=== PATIENT | male | born 1980 | race Caucasian/White ===

== ENCOUNTER → 2020-12-28 13:08 | Outpatient (BNVA) | payer OTHER, SELFPAY | PROVIDERS: Visit Provider Nurse Practitioner Family | DX: Z20.822 Contact with and (suspected) exposure to COVID-19 (principal); Z20.828 Contact with and (suspected) exposure to other viral communicable diseases | CPT/HCPCS: 87635 ==

== ENCOUNTER 2023-02-11 18:07 | Emergency (ER) | payer SELFPAY ==
--- NOTE | 2023-02-11 18:08 | XRR_ITS ---
PROCEDURE INFORMATION: Exam: XR Right Ankle Exam date and time: 02/11/2023 6:15 PM Age: 42 years old Clinical indication: Injury or trauma; Other: Unknown TECHNIQUE: Imaging protocol: Radiologic exam of the right ankle. Views: 3 or more views. COMPARISON: CR (LOW EXM, ) 02/11/2023 6:15 PM FINDINGS: Bones/joints: Likely chronic appearing calcifications about the distal fibular metaphysis. Soft tissues: Normal. XR/XR ankle RT min 3V* [id number] IMPRESSION: Likely chronic appearing calcifications about the distal fibular metaphysis. If clinically indicated a CT scan could further evaluate.
--- NOTE | 2023-02-11 18:08 | XRR_ITS ---
PROCEDURE INFORMATION: Exam: XR Right Foot Exam date and time: 02/11/2023 6:15 PM Age: 42 years old Clinical indication: Injury or trauma; Other: Unknown TECHNIQUE: Imaging protocol: Radiologic exam of the right foot. Views: 3 or more views. COMPARISON: CR (LOW EXM, ) 02/11/2023 6:15 PM FINDINGS: Bones/joints: Os navicularis, normal variant. Soft tissues: Normal. XR/XR foot RT min 3V* [id number] IMPRESSION: No acute findings.
[2023-02-11 18:27] VITALS: BP 139/71; PULSE 118; RESP 16; TEMP 36.4; O2SAT 99; BMI 28.0
--- NOTE | 2023-02-11 18:32 | W.ED.EXTPRO ---
HPI - Extremity Problem General: Chief complaint: Extremity Injury, Lower Stated complaint: R foot injury/pain Time Seen by Provider: 02/11/23 18:12 History of Present Illness: 42-year-old male patient comes in today with right ankle pain and discomfort. Patient reports he had worked in the yard over the weekend and since then he has had increased pain discomfort and swelling to the ankle. Patient denies any injury that he can recall. Patient appears nontoxic. Patient does appear in moderate pain. Patient denies any chronic medical problems. Patient does report a previous injury to the ankle that he believes he might of fractured it but did not have it evaluated at the time of injury. Patient reports since then he has had problems with his ankle intermittently. Associated symptoms: Deny chest pain or fever(s) Review of Systems General: Reports: 10 or more systems reviewed and unremarkable except in HPI and below Const: Denies: fever(s) Card: Denies: chest pain Resp: Denies: dyspnea GI: Denies: vomiting : Denies: difficulty urinating Musc: Reports: extremity pain and extremity swelling Neuro: Denies: headache(s) Physical Exam Const: COMMON NORMALS: alert HENMT: COMMON NORMALS: normocephalic HEAD & SCALP: normocephalic Neck/C-Spine: COMMON NORMALS: full ROM Resp: COMMON NORMALS: normal respiratory effort Cardio: COMMON NORMALS: regular rate RATE: regular rate Back/Pelvis: COMMON NORMALS: thoracic and lumbar spine normal to inspection Extremity: RIGHT LOWER EXTREMITY: Yes foot & digits (Bilateral tenderness to the ankle joint. No redness minimal to no swelling) Right ankle: Yes inspection, Yes palpation and Yes ROM (Reduced range of motion.) Neuro: SENSORIUM/ORIENTATION: Yes alert Skin: COMMON NORMALS: turgor normal GENERAL SKIN EXAM: turgor normal Course Vital Signs: Vital signs: Vital Signs Temperature 97.6 F 02/11/23 18:27 Pulse Rate 118 H 02/11/23 18:27 Respiratory Rate 16 02/11/23 18:27 Blood Pressure 139/71 02/11/23 18:27 Pulse Oximetry 99 02/11/23 18:27 MDM - Extremity (Nontraumatic) Medical Decision Making 42-year-old male patient comes in today for complaints of injury to the right ankle. On exam patient denied any injury but reported increased pain after working outside over the weekend. Patient has had prior episodes of similar pain but this was worse and he was unable to sleep with it. On exam there is no significant redness or swelling noted to the ankle. Patient has joint line tenderness to the ankle. Patient has reduced range of motion of the ankle joint. Differential diagnosis includes arthritis, gout, sprain versus strain. X-rays showed no acute abnormality but some arthritic changes. Patient was placed in a walking boot and written prescription for diclofenac and prednisone for inflammation and pain. Patient was also given hydrocodone for severe pain. Patient was recommended to increase activity as tolerated. Patient was recommended to follow-up with certified welding inspector for further evaluation and treatment. All radiology interpretation(s) finalized by discharge Discharge Plan Discharge Patient Disposition: Home Clinical Impression: Ankle sprain and strain Arthrosis of ankle Qualifiers: Laterality: right Qualified Code(s): M19.071 - Primary osteoarthritis, right ankle and foot Condition: Stable Prescriptions: New diclofenac sodium 75 mg tablet,delayed release (DR/EC) 75 mg PO BID Qty: 20 0RF prednisone 20 mg tablet 20 mg PO BID 5 Days Qty: 10 0RF hydrocodone-acetaminophen 5-325 mg tablet 1 tab PO Q8H PRN (Reason: pain (scale score 7-10)) Qty: 7 0RF Discharge Orders: Discharge ED (Routine); Ordered 02/11/23 Ordered By: Pavel Sy Other Ambulatory Orders: DME: Miscellaneous (Order) Location: None Selected Ordered By: Pavel Sy Referrals: Omar Naidu DPM [Physician] - Discharge Diet: Usual diet Discharge Activity: Increase activity as tolerated Patient Instructions: Ankle Strain (ED) Activity Restrictions/Additional Instructions: Follow-up with certified welding inspector office for further evaluation and treatment of ankle for pain and discomfort. Use acetaminophen to help control pain. Use diclofenac 75 mg for pain and inflammation. Take prednisone 20 mg twice a day for further inflammation relief. Use hydrocodone for severe pain. Wear walking boot for the next 2 weeks or until cleared by certified welding inspector. Return to ER for new concerns. Coding Level of Care Code ED Strap Maker for Sumit Santana
[2023-02-11] MEDS: HYDROcodone-acetaminophen 7.5-325 mg Tablet 1 TAB PO (18:52)
[2023-02-11] MEDS: naproxen 500 mg Tablet PO (18:52)
[2023-02-11 19:28] VITALS: BP 122/87; PULSE 113; RESP 15; O2SAT 100
== END 2023-02-11 19:32 | disposition home or self-care (01) ==
PROVIDERS: Emergency Provider Nurse Practitioner Family
DX: M19.071 Primary osteoarthritis, right ankle and foot (principal); S93.401A Sprain of unspecified ligament of right ankle, initial encounter; S96.911A Strain of unspecified muscle and tendon at ankle and foot level, right foot, initial encounter; X58.XXXA Exposure to other specified factors, initial encounter
CPT/HCPCS: 73610; 73630; 99283; J1100